=== PATIENT | male | born 1980 | race Asian ===

== ENCOUNTER 2024-03-10 11:30 | Emergency (ER) | payer OTHER ==
[~2024-03-10] VITALS: Ht 180.3 cm; Wt 86.6 kg
[2024-03-10] MEDS ORDERED: HYDROCODONE/APAP 5/325MG TABLET ONE (11:59)
[2024-03-10] MEDS: HYDROCODONE/APAP 5/325MG TABLET PO ONE (12:00)
[2024-03-10] MEDS ORDERED: TRAM50TA2 PO (12:53)
[2024-03-10] MEDS ORDERED: KETO10TA2 PO (12:53)
[2024-03-10 13:00] VITALS: BP 124/87; TEMP 98.7; O2SAT 100
== END 2024-03-10 13:01 | disposition home or self-care (01) ==
LOC: ER 11:30
DX: S89.81XA Other specified injuries of right lower leg, initial encounter (principal); Z79.899 Other long term (current) drug therapy; Z60.2 Problems related to living alone; X58.XXXA Exposure to other specified factors, initial encounter; Y93.63 Activity, rugby; Y92.89 Other specified places as the place of occurrence of the external cause; Y99.8 Other external cause status
CPT/HCPCS: 73562